=== PATIENT | male | born 1970 | race Caucasian/White ===

== ENCOUNTER → 2023-08-07 08:45 | Outpatient (REF) | payer OTHER, SELFPAY | LOC: RCS 08:45 | PROVIDERS: ATTENDING PHYSICIAN Internal Medicine Cardiovascular Disease; FAMILY PHYSICIAN Internal Medicine Infectious Disease | DX: R53.83 Other fatigue (principal); R00.0 Tachycardia, unspecified | CPT/HCPCS: 93306 ==